=== PATIENT | female | born 1950 | race Caucasian/White ===

== ENCOUNTER 2018-11-26 17:10 | Emergency (ER) | payer MEDICARE, SELFPAY ==
[2018-11-26 17:12] VITALS: BMI 26.4
--- NOTE | 2018-11-26 17:17 | DI.RAD.S_ITS ---
PROCEDURE: XR CHEST 2V INDICATIONS: pain TECHNIQUE: 2 views of the chest were acquired. COMPARISON: None. FINDINGS: Surgical changes and devices: None. Lungs and pleura: Lungs are clear. No pleural effusions or pneumothorax. Mediastinum: Mediastinal contours are normal. Heart size is normal. Bones and chest wall: No suspicious bony abnormalities. Soft tissues appear unremarkable. IMPRESSION: No acute cardiopulmonary disease process. Dictated by: Tuhy Rosado MD, PhD on 11/26/2018 at 17:43 Approved by: Thuy Rosado MD, PhD on 11/26/2018 at 17:44
[2018-11-26 19:48] VITALS: BP 153/73; PULSE 74; RESP 20; O2SAT 100
[2018-11-26 20:00] VITALS: BP 144/83; PULSE 70; O2SAT 100
--- NOTE | 2018-11-26 20:04 | ED.CHESTPAIN ---
HPI - Chest Pain General Chief Complaint: Chest Pain Stated Complaint: Chest Pain Time Seen by Provider: 11/26/18 20:04 Source: patient Mode of arrival: ambulatory Limitations: no limitations History of Present Illness HPI narrative: The patient fell about 3:00 a.m. today. She has a local store, she complained of dizziness, and fell on the sidewalk. She landed on her right forearm, slightly bumped her head, but now complains of right chest pain. the pain is in her right anterior ribs, below the breast. She has no associated dyspnea or hemoptysis. She has right anterior chest pain. she is having no palpitations. She has no cardiac history. She no longer complains of dizziness. She complains primarily of pain. she is not diabetic. He has no history of hypertension. She has no history of syncope, arrhythmia, or CVA. She has not recently been ill. Related Data Home Medications Medication Instructions Recorded Confirmed bupropion HCl 300 mg PO DAILY 11/26/18 11/26/18 hydrocodone-acetaminophen 1 tab PO BID PRN MDD 3000 mg 11/26/18 levothyroxine 50 mcg PO DAILY 11/26/18 11/26/18 Previous Rx's Medication Instructions Recorded tramadol 50 mg PO Q6H PRN #20 tab 11/26/18 Allergies Allergy/AdvReac Type Severity Reaction Status Date / Time No Known Drug Allergies Allergy Verified 11/26/18 17:12 Review of Systems Review of Systems ROS Unobtainable: All systems reviewed & are unremarkable except as noted in HPI and below Constitutional Denies fever(s), Denies lethargy and Denies weakness ENT Ears, Nose, Mouth, and Throat: Denies neck pain Cardiovascular Denies chest pain, Denies irregular heart rhythm, Reports lightheadedness, Denies palpitations and Denies dyspnea Respiratory Denies cough, Denies dyspnea and Denies wheezing Gastrointestinal Gastrointestinal: Denies abdominal pain, Denies nausea and Denies vomiting Musculoskeletal Denies back pain, Denies neck pain and Denies numbness Comments: No extremity pain. Integumentary/Breasts Denies erythema and Denies wounds Neurologic Denies numbness and Denies weakness Psychiatric Reports anxiety Endocrine Denies palpitations Allergic/Immunologic Denies wheezing FOR[facility]LY [facility], [facility] Medical History (Updated 11/26/18 @ 21:55 by Raul Corcoran MD) Depression (Acute) Hypothyroidism (Acute) Surgical History (Updated 11/26/18 @ 20:27 by Raul Corcoran MD) No pertinent past surgical history (Acute) Social History (Updated 11/26/18 @ 20:27 by Raul Corcoran MD) Smoking Status: Never smoker alcohol intake: never Social History (Updated 11/26/18 @ 20:27 by Raul Corcoran MD) Smoking Status: Never smoker alcohol intake: never Exam Initial Vital Signs Initial Vital Signs: Vital Signs Pulse Rate 74 11/26/18 19:48 Respiratory Rate 20 11/26/18 19:48 Blood Pressure 153/73 H 11/26/18 19:48 Pulse Oximetry 100 11/26/18 19:48 Const General: cooperative, well developed and anxious Nutritional Appearance: well nourished Orientation: alert, awake and oriented x3 HENMT Head: normocephalic and atraumatic Nose: external nose normal Face and sinus: face symmetric and dry mucous membranes Mouth: oral mucosae normal and moist mucous membranes Throat: posterior oropharynx normal Eyes General: appearance normal, both eyes and all related structures Pupils: PERRL EOM: EOM intact bilaterally Neck Neck: No midline deformity and No tender Chest Chest: No crepitus and localized rib tenderness with anteroposterior compression (Right anterior chest) Resp Effort & Inspection: normal respiratory effort and able to speak in complete sentences Auscultation: clear to auscultation bilaterally, no rales, no rhonchi and no wheezes Cardio Rate: regular rate Rhythm: regular rhythm Heart Sounds: no click, no gallops, no murmurs and no rubs Pulses: normal peripheral pulses GI Inspection: non-distended Palpation: soft, no hepatosplenomegaly, No guarding, No pulsatile mass and No tender Auscultation: normal bowel sounds Back/Spine/Pelvis Back: normal to inspection and No back tenderness Skin General: no rashes or lesions noted Neuro General: alert, oriented x3, gait normal and no focal motor deficits Speech: speech normal Extrem Other: Atraumatic Psych Appearance: well kempt Mental Status: mental status grossly normal Speech and Movement: speech and movement normal Attitude: cooperative Thought Content: normal and suicidality Judgment: judgment good Course Course Narrative: The patient has what appears to be a chest wall contusion. She has been treated with Toradol IM, and will be discharged on Tylenol and tramadol. Orders Ordered: ED Orders 11/26/18 17:14 EKG-12 Lead Routine 11/26/18 17:17 XR chest 2V Stat 11/26/18 20:18 XR ribs RT 2V Stat Discontinued Medications Ketorolac Tromethamine (Toradol) 30 mg IM NOW ONE Stop: 11/26/18 20:16 Last Admin: 11/26/18 20:25 Dose: 30 mg Tramadol HCl (Ultram 50mg Prepack) 1 bottle MISC SEEINSTR ONE Stop: 11/26/18 21:51 Vital Signs - 8 hr 11/26/18 19:48 11/26/18 20:00 11/26/18 20:32 Temperature 97.9 F Pulse Rate 74 70 Respiratory Rate 20 Blood Pressure [Left Arm] 153/73 H 144/83 H Pulse Oximetry 100 100 11/26/18 21:03 11/26/18 21:52 Temperature 97.9 F Pulse Rate 74 78 Respiratory Rate 16 Blood Pressure [Left Arm] 152/70 H 146/69 H Pulse Oximetry 100 98 MDM - Chest Pain Imaging Data Right rib XR:: Radiologist's impression: [address] [address] XRay Report Signed Patient: Yesika Peralta [facility]#: [id number] : 9Acct:[id number] Age/Sex: 67 / FDate of Service: 11/26/18 Loc: ED Accession Number: [id number] Procedure: XR ribs RT 2V Ordering Provider: Raul Corcoran M.D. PROCEDURE: XR RIBS RT 2V INDICATIONS: Fall. Right rib pain. TECHNIQUE: 2 views of the right ribs were acquired. COMPARISON: None. FINDINGS: Surgical changes and devices: None. Bones and chest wall: No fractures or dislocations. No suspicious bony lesions. Overlying soft tissues appear unremarkable. Lungs and pleura: The visualized lung appears clear. No pleural effusions or pneumothorax are visible. IMPRESSION: No displaced rib fracture. Dictated by: Thuy Rosado MD, PhD on 11/26/2018 at 20:43 Approved by: Thuy Rosado MD, PhD on 11/26/2018 at 20:44 Chest x-ray: Radiologist's impression: [address] [place] [address] XRay Report Signed Patient: Yesika Peralta [facility]#: [id number] : 9Acct:[id number] Age/Sex: 67 / FDate of Service: 11/26/18 Loc: ED Accession Number: [id number] Procedure: XR chest 2V Ordering Provider: Trudy Rico D.O. PROCEDURE: XR CHEST 2V INDICATIONS: pain TECHNIQUE: 2 views of the chest were acquired. COMPARISON: None. FINDINGS: Surgical changes and devices: None. Lungs and pleura: Lungs are clear. No pleural effusions or pneumothorax. Mediastinum: Mediastinal contours are normal. Heart size is normal. Bones and chest wall: No suspicious bony abnormalities. Soft tissues appear unremarkable. IMPRESSION: No acute cardiopulmonary disease process. Dictated by: Thuy Rosado MD, PhD on 11/26/2018 at 17:43 Approved by: Thuy Rosado MD, PhD on 11/26/2018 at 17:44 ECG Data Attestation: I personally reviewed and interpreted this ECG as follows: (Normal sinus rhythm rate 76 beats per minute. incomplete RBBB. Normal intervals. No ectopy. No acute ST T wave changes.) Discharge Plan Departure Patient Disposition: Home Clinical Impression: Contusion of rib on right side Qualifiers: Encounter type: initial encounter Qualified Code(s): S20.211A - Contusion of right front wall of thorax, initial encounter Instructions: DI for Rib Contusion Activity Restrictions/Additional Instructions: Tylenol 2 tablets every 4 hours as needed for pain. Tramadol every 6 hours as needed for added pain control. If no better within a week, recheck with her doctor. If obviously worse return to the ER. Prescriptions: New tramadol 50 mg tablet 50 mg PO Q6H PRN (Reason: pain) Qty: 20 RF: 0 No Action hydrocodone-acetaminophen 5-325 mg tablet 1 tab PO BID MDD 3000 mg PRN (Reason: pain) RF: 0 levothyroxine 50 mcg tablet 50 mcg PO DAILY RF: 0 bupropion HCl 300 mg tablet extended release 24 hr 300 mg PO DAILY RF: 0
--- NOTE | 2018-11-26 20:18 | DI.RAD.S_ITS ---
PROCEDURE: XR RIBS RT 2V INDICATIONS: Fall. Right rib pain. TECHNIQUE: 2 views of the right ribs were acquired. COMPARISON: None. FINDINGS: Surgical changes and devices: None. Bones and chest wall: No fractures or dislocations. No suspicious bony lesions. Overlying soft tissues appear unremarkable. Lungs and pleura: The visualized lung appears clear. No pleural effusions or pneumothorax are visible. IMPRESSION: No displaced rib fracture. Dictated by: Thuy Rosado MD, PhD on 11/26/2018 at 20:43 Approved by: Thuy Rosado MD, PhD on 11/26/2018 at 20:44
[2018-11-26] MEDS: KETOROLAC 60 MG/2 ML VIAL 30 MG IM (20:25)
[2018-11-26 20:32] VITALS: TEMP 36.6
[2018-11-26 21:03] VITALS: BP 152/70; PULSE 74; O2SAT 100
[2018-11-26 21:52] VITALS: BP 146/69; PULSE 78; RESP 16; TEMP 36.6; O2SAT 98
[2018-11-26] MEDS: TRAMADOL 50 MG PREPACK 1 BOTTLE MISC (22:03)
== END 2018-11-26 22:05 | disposition home or self-care (01) ==
PROVIDERS: Emergency Provider Emergency Medicine
DX: S20.211A Contusion of right front wall of thorax, initial encounter (principal); R42 Dizziness and giddiness; R07.81 Pleurodynia; W19.XXXA Unspecified fall, initial encounter
CPT/HCPCS: 71046; 71100; 93005; 93010; 96372; 99283; 99284; J1885

== ENCOUNTER → 2023-12-05 14:28 | Outpatient (CLI) | payer MEDICARE, SELFPAY ==
--- NOTE | 2023-12-05 14:31 | DI.RAD.S_ITS ---
PROCEDURE: XR SHOULDER RT MIN 2V INDICATIONS: PAIN TECHNIQUE: 3 views of the shoulder were acquired. COMPARISON: None. FINDINGS: Bones: Mild degenerative change of the acromioclavicular joint. Severe degenerative change of the glenohumeral joint with large humeral head osteophytosis. Cortical irregularity of the greater tuberosity, concern for rotator cuff pathology. No acute fracture or dislocation. Soft tissues: No suspicious soft tissue calcifications. IMPRESSION: Chronic changes. Dictated by: Fatuma Mathis M.D. on 12/05/2023 at 17:13 Approved by: Fatuma Mathis M.D. on 12/05/2023 at 17:16
== END ==
LOC: RAD 14:30
PROVIDERS: Referring Provider Specialist; Visit Provider Specialist
DX: M25.512 Pain in left shoulder (principal)
CPT/HCPCS: 73030

== ENCOUNTER 2024-04-13 16:30 | Emergency (ER) | payer MEDICARE, SELFPAY ==
[2024-04-13] VITALS (15 sets, daily range): BP systolic 157–186; BP diastolic 67–94; PULSE 68–83; RESP 14–30; TEMP 36.9; O2SAT 92–98; BMI 25.0
--- NOTE | 2024-04-13 16:45 | DI.CT.S_ITS ---
PROCEDURE: CT ANGIO HEAD AND NECK INDICATIONS: syncopal episode,hit face on concrete TECHNIQUE: After the administration of intravenous contrast, 1 mm thick sections acquired from the aortic arch through the [place]. 3-dimensional prxlaau-otbcvvgjz-pxewhidgce (MIP) and/or volume rendering reformats were acquired of the central intracranial vasculature and neck separately. For radiation dose reduction, the following was used: automated exposure control, adjustment of mA and/or kV according to patient size. COMPARISON: None. FINDINGS: Image quality: Diagnostic. BRAIN: CSF spaces: Ventricles are normal in size and shape. Basal cisterns are patent. No extra-axial fluid collections. Brain: No significant abnormality of the brain can be seen. Skull and face: Calvarium and facial bones appear intact, without suspicious lesions. Orbits appear normal. Sinuses: Sinuses and mastoids are clear. HEAD CT ANGIOGRAPHY: Anterior circulation: Intracranial internal carotid arteries are normal in size and flow. The flow within the paired anterior cerebral arteries is normal and symmetric. The flow within the middle cerebral arteries is normal and symmetric. The anterior communicating artery is seen. No aneurysms are seen. Posterior circulation: Visualized portions of the vertebral arteries demonstrate normal caliber, and join to form a normal appearing basilar artery. Flow within the posterior cerebral arteries is normal and symmetric. No aneurysms are seen. NECK CT ANGIOGRAPHY: Carotid system: The great vessels demonstrate a conventional anatomy as they arise from the aortic arch. The origins of the common carotid arteries appear patent. The common carotid arteries demonstrate normal caliber and courses. The bifurcation regions are both widely patent. The internal carotid arteries demonstrate normal calibers and courses. Posterior circulation: The origins of the vertebral arteries both appear widely patent. The more superior extracranial portions of both vertebral arteries also demonstrate normal courses and calibers. They join to form a normal appearing basilar artery. Soft tissues: Visualized neck soft tissues demonstrate no suspicious abnormalities. Bones: No suspicious bony lesions. There is straightening of the normal cervical lordosis. Multilevel degenerative changes. IMPRESSION: No significant intracranial arterial abnormality is seen. No significant abnormality is seen within the arteries of the neck. Any quantitative measurements of stenosis were performed using NASCET criteria. Approved by: Bailey Jameson M.D.,Ph.D. on 04/13/2024 at 18:09
--- NOTE | 2024-04-13 16:45 | DI.CT.S_ITS ---
PROCEDURE: CT FACIAL BONES WO CON INDICATIONS: syncopal episode,hit face on concrete TECHNIQUE: Noncontrast 2.5 mm thick axial images acquired from the mandible through the frontal sinuses, with coronal and sagittal reformatting. For radiation dose reduction, the following was used: automated exposure control, adjustment of mA and/or kV according to patient size. COMPARISON: None. FINDINGS: Image quality: Diagnostic Bones and teeth: Orbital frazier are intact. Sinus frazier show no fracture or deformity. Nasal bones and septum are intact. Visualized portions of the mandible demonstrate no fractures or subluxation. Zygomatic arches are intact. Pterygoid plates are intact. Visualized portions of the skull base and auditory canals are intact. Sinuses: Paranasal sinuses are aerated, without fluid levels, mucosal thickening, or mucoceles. Mastoid air cells are aerated. Soft tissues: No edema, masses, or fluid collections. No enlarged lymph nodes. No soft tissue lacerations or debris. Vascular: Visualized vascular structures appear normal in the absence of contrast. Bony vascular foramina and canals are intact. IMPRESSION: No acute craniofacial abnormality. Approved by: Bailey Jameson M.D.,Ph.D. on 04/13/2024 at 19:07
--- NOTE | 2024-04-13 16:45 | DI.CT.S_ITS ---
PROCEDURE: CT CERVICAL SPINE WO CON INDICATIONS: syncopal episode,hit face on concrete TECHNIQUE: Noncontrast 3 mm thick sections acquired from the skull base to the T4 level. Sagittal and coronal reformats were then constructed. For radiation dose reduction, the following was used: automated exposure control, adjustment of mA and/or kV according to patient size. COMPARISON: None. FINDINGS: Image quality: Diagnostic Bones: No fractures or dislocations. Visualized superior ribs are intact. There is straightening of the normal cervical lordosis. Severe multilevel degenerative changes. Soft tissues: Prevertebral soft tissues are normal in thickness. No paravertebral hematomas. No apical pneumothoraces. IMPRESSION: No acute displaced fracture or traumatic subluxation. Approved by: Bailey Jameson M.D.,Ph.D. on 04/13/2024 at 19:11
--- NOTE | 2024-04-13 16:45 | DI.CT.S_ITS ---
PROCEDURE: CT HEAD/BRAIN WO CON INDICATIONS: syncopal episode,hit face on concrete TECHNIQUE: Noncontrast 4.5 mm thick angled axial sections acquired from the foramen magnum to the vertex, with coronal and sagittal reformats. For radiation dose reduction, the following was used: automated exposure control, adjustment of mA and/or kV according to patient size. COMPARISON: None. FINDINGS: Image quality: Diagnostic. CSF spaces: Basal cisterns are patent. No extra-axial fluid collections. The ventricles are symmetric in size and shape. Brain: No intracranial bleeds or masses. There is cerebral volume loss for age, with resultant ventricular and sulcal prominence. There are periventricular and deep white matter chronic small vessel ischemic changes. There is intracranial internal carotid artery atherosclerosis. Skull and face: Calvarium and visualized facial bones appear intact, without suspicious lesions. Sinuses: Visualized sinuses and mastoids are clear. IMPRESSION: No acute intracranial pathology. Approved by: Bailey Jameson M.D.,Ph.D. on 04/13/2024 at 18:04
--- NOTE | 2024-04-13 16:46 | DI.RAD.S_ITS ---
PROCEDURE: XR CHEST 1V INDICATIONS: chest pain TECHNIQUE: One view of the chest was acquired. COMPARISON: [facility], CR, XR CHEST 2V, 11/26/2018, 17:33. FINDINGS: Surgical changes and devices: None. Lungs and pleura: Lungs are clear. No pleural effusions or pneumothorax. Mediastinum: Mediastinal contours appear normal. Heart size is normal. Bones and chest wall: No suspicious bony lesions. Overlying soft tissues appear unremarkable. IMPRESSION: No acute cardiopulmonary abnormality is seen. Approved by: Bailey Jameson M.D.,Ph.D. on 04/13/2024 at 17:33
--- NOTE | 2024-04-13 16:54 | EKG_ITS ---
[address] [address] Test Date: 2024-04-13 Pat Name: Yesika Peralta Department: Room: Gender: Female Executive Legal Secretary: CESAR : 1950 Requested By: Order Number: [id number] Reading MD: Edu Bazan MD Measurements Intervals Goodman Rate: 70 P: 50 MS: 178 QRS: -20 QRSD: 86 T: 24 QT: 402 QTc: 434 Interpretive Statements Normal sinus rhythm with sinus arrhythmia Minimal voltage criteria for LVH, may be normal variant ( R in aVL ) Electronically Signed On 04-17-2024 8:34:06 PDT by Edu Bazan MD
[2024-04-13 17:04] LABS: Add Manual Diff / Slide Review NO; Basophils Absolute Auto 100 /uL (0-100); Eosinophils Absolute Auto 200 /uL (0-450); Eosinophils Percent Auto 1.6 % (2-4); Hematocrit 37.2 % (36-46); Hemoglobin 12.7 g/dL (12.0-16.0); Lymphocytes Absolute Auto 2500 /uL (1100-4500); Lymphocytes Percent Auto 24.4 % (25-40); Mean Corpuscular Hemoglobin 29.7 PG (26-34); Mean Corpuscular Volume 87.1 fL (80-100); Monocytes Absolute Auto 1100 /uL (0-900); Monocytes Percent Auto 10.9 % (3-14); Neutrophils Absolute Auto 6300 /uL (1500-7000); Neutrophils Percent Auto 62.1 % (50-75); Platelet Count 389 X10^3/uL (150-400); Red Blood Cell Count 4.27 X10^6/uL (4.0-5.2); Red Cell Distribution Width 14.4 % (11.6-14.8); White Blood Cell Count 10.1 X10^3/uL (4.5-11.0)
[2024-04-13 17:11] LABS: Prothrombin Time 11.1 SECONDS (9.4-12.5)
[2024-04-13 17:14] LABS: PTT Partial Thromboplastin Tim 39 SECONDS (25.1-36.5)
[2024-04-13 17:16] LABS: Alanine Aminotransferase 15 IU/L (<35); Albumin 3.9 g/dL (3.5-5.0); Albumin Globulin Ratio 1.4 (1.0-2.8); Alkaline Phosphatase 75 U/L (38-126); Aspartate Aminotransferase 24 IU/L (14-36); BUN Creatinine Ratio 17.7 (6-22); Bilirubin Total 0.4 mg/dL (0.2-1.3); Blood Urea Nitrogen 14 mg/dL (7-17); Calcium 9.2 mg/dL (8.4-10.2); Carbon Dioxide 23 mmol/L (22-32); Chloride 104 mmol/L (98-107); Creatine Kinase 38 U/L (30-135); Estimated Glomerular Filt Rate > 60 mL/min (>60); Globulin 2.8 g/dL (1.7-4.1); Glucose 90 mg/dL (80-110); HEMOLYSIS < 15 (0-50); Lipase 48 U/L (23-300); Magnesium 2.3 mg/dL (1.6-2.3); Potassium 3.9 mmol/L (3.4-5.1); Sodium 134 mmol/L (137-145); Total Protein 6.7 g/dL (6.3-8.2)
--- NOTE | 2024-04-13 17:23 | ED.SYNCOPE ---
HPI - Syncope <Graham Bales DO - Last Filed: 04/14/24 10:50> General Chief Complaint: Syncope Stated Complaint: syncopal episode, fell on sidewalk Time Seen by Provider: 04/13/24 16:53 Source: patient Mode of arrival: Ambulatory Limitations: no limitations History of Present Illness HPI narrative: Patient is a 73-year-old female past medical history of hypothyroidism comes into the ED via EMS for evaluation of witnessed syncopal event. Patient states that she was out walking downtown when she had a syncopal event. States that she was not having any presyncopal or syncopal symptoms no chest pain shortness of breath prior or after the symptoms. No blood thinners, no seizure-like activity. Currently she is stating she has not having any symptoms such as headache visual disturbances chest pain shortness breath fever chills nausea vomiting abdominal pain or any other GI/ symptoms. Related Data Home Medications Medication Instructions Recorded Confirmed bupropion HCl 300 mg 24 hr tablet, 300 mg PO DAILY 11/26/18 11/26/18 extended release hydrocodone 5 mg-acetaminophen 325 1 tab PO BID PRN pain 11/26/18 mg tablet levothyroxine 50 mcg tablet 50 mcg PO DAILY 11/26/18 11/26/18 Previous Rx's Medication Instructions Recorded tramadol 50 mg tablet 50 mg PO Q6H PRN pain #20 tabs 11/26/18 Allergies Allergy/AdvReac Type Severity Reaction Status Date / Time No Known Drug Allergies Allergy Verified 04/13/24 16:47 Patient History <Graham Bales DO - Last Filed: 04/14/24 10:50> Medical History (Updated 04/13/24 @ 21:14 by Alex Gregorio DO) Depression Hypothyroidism Surgical History (Updated 11/26/18 @ 20:27 by Raul Corcoran MD) No pertinent past surgical history Social History (Updated 11/26/18 @ 20:27 by Raul Corcoran MD) Smoking Status: Never smoker alcohol intake: never Smoking Status: Never smoker alcohol intake frequency: holidays/special occasions only Substance Use Type: does not use Exam <Graham Bales DO - Last Filed: 04/14/24 10:50> Initial Vital Signs Initial Vital Signs: Vital Signs Temperature 98.5 F 04/13/24 16:31 Pulse Rate 80 04/13/24 16:31 Respiratory Rate 14 04/13/24 16:31 Blood Pressure 186/94 H 04/13/24 16:31 Pulse Oximetry 94 04/13/24 16:31 Oxygen Delivery Method Room Air 04/13/24 16:31 <Alex Gregorio, DO - Last Filed: 04/13/24 21:50> Initial Vital Signs Initial Vital Signs: Vital Signs Temperature 98.5 F 04/13/24 16:31 Pulse Rate 80 04/13/24 16:31 Respiratory Rate 14 04/13/24 16:31 Blood Pressure 186/94 H 04/13/24 16:31 Pulse Oximetry 94 04/13/24 16:31 Oxygen Delivery Method Room Air 04/13/24 16:31 Course <Graham Bales, DO - Last Filed: 04/14/24 10:50> Orders Ordered: Discontinued Medications Diphtheria/Tetanus/Acell Pertussis (Tet,Diph,Pertuss(Acell),Vac/Pf 0.5 Ml Syringe) 0.5 ml IM .ONCE ONE Stop: 04/13/24 21:31 Last Admin: 04/13/24 21:34 Dose: 0.5 ml Documented By: JIAN Vital Signs Vital signs: Vital Signs - 8 hr 04/13/24 16:31 04/13/24 16:38 04/13/24 16:39 Temperature 98.5 F Pulse Rate 80 83 80 Respiratory Rate 14 Blood Pressure 186/94 H Pulse Oximetry 94 97 96 Oxygen Delivery Method Room Air Room Air 04/13/24 16:39 04/13/24 17:00 04/13/24 17:00 Temperature Pulse Rate 70 Respiratory Rate 17 Blood Pressure 186/94 H 159/73 H Pulse Oximetry 97 Oxygen Delivery Method 04/13/24 17:34 04/13/24 17:35 04/13/24 17:35 Temperature Pulse Rate 73 72 Respiratory Rate 16 17 Blood Pressure 165/72 H Pulse Oximetry 92 98 Oxygen Delivery Method Room Air 04/13/24 18:00 04/13/24 18:00 04/13/24 18:30 Temperature Pulse Rate 71 68 Respiratory Rate 21 24 Blood Pressure 158/67 H Pulse Oximetry 97 98 Oxygen Delivery Method 04/13/24 19:00 04/13/24 19:01 04/13/24 19:01 Temperature Pulse Rate 77 77 Respiratory Rate Blood Pressure 173/74 H Pulse Oximetry 98 98 Oxygen Delivery Method 04/13/24 19:30 04/13/24 19:30 04/13/24 20:04 Temperature Pulse Rate 72 82 Respiratory Rate 24 30 H Blood Pressure 166/74 H Pulse Oximetry 95 97 Oxygen Delivery Method Room Air 04/13/24 20:30 04/13/24 21:00 04/13/24 21:22 Temperature Pulse Rate 70 70 76 Respiratory Rate 18 18 20 Blood Pressure Pulse Oximetry 96 96 96 Oxygen Delivery Method 04/13/24 21:22 Temperature Pulse Rate Respiratory Rate Blood Pressure 157/69 H Pulse Oximetry Oxygen Delivery Method <Alex Gregorio, DO - Last Filed: 04/13/24 21:50> Orders Ordered: Discontinued Medications Diphtheria/Tetanus/Acell Pertussis (Tet,Diph,Pertuss(Acell),Vac/Pf 0.5 Ml Syringe) 0.5 ml IM .ONCE ONE Stop: 04/13/24 21:31 Last Admin: 04/13/24 21:34 Dose: 0.5 ml Documented By: BS Vital Signs Vital signs: Vital Signs - 8 hr 04/13/24 16:31 04/13/24 16:38 04/13/24 16:39 Temperature 98.5 F Pulse Rate 80 83 80 Respiratory Rate 14 Blood Pressure 186/94 H Pulse Oximetry 94 97 96 Oxygen Delivery Method Room Air Room Air 04/13/24 16:39 04/13/24 17:00 04/13/24 17:00 Temperature Pulse Rate 70 Respiratory Rate 17 Blood Pressure 186/94 H 159/73 H Pulse Oximetry 97 Oxygen Delivery Method 04/13/24 17:34 04/13/24 17:35 04/13/24 17:35 Temperature Pulse Rate 73 72 Respiratory Rate 16 17 Blood Pressure 165/72 H Pulse Oximetry 92 98 Oxygen Delivery Method Room Air 04/13/24 18:00 04/13/24 18:00 04/13/24 18:30 Temperature Pulse Rate 71 68 Respiratory Rate 21 24 Blood Pressure 158/67 H Pulse Oximetry 97 98 Oxygen Delivery Method 04/13/24 19:00 04/13/24 19:01 04/13/24 19:01 Temperature Pulse Rate 77 77 Respiratory Rate Blood Pressure 173/74 H Pulse Oximetry 98 98 Oxygen Delivery Method 04/13/24 19:30 04/13/24 19:30 04/13/24 20:04 Temperature Pulse Rate 72 82 Respiratory Rate 24 30 H Blood Pressure 166/74 H Pulse Oximetry 95 97 Oxygen Delivery Method Room Air 04/13/24 20:30 04/13/24 21:00 04/13/24 21:22 Temperature Pulse Rate 70 70 76 Respiratory Rate 18 18 20 Blood Pressure Pulse Oximetry 96 96 96 Oxygen Delivery Method 04/13/24 21:22 Temperature Pulse Rate Respiratory Rate Blood Pressure 157/69 H Pulse Oximetry Oxygen Delivery Method MDM - Syncope <Graham Bales, - Last Filed: 04/14/24 10:50> Differential Diagnosis Differential diagnosis: Likely syncope due to orthostatic hypotension, vasovagal syncope, complete atrioventricular block, pulmonary embolism and other (Electrolyte abnormality) Condition is:: Improved Medical Records Attestation: I reviewed the patient's medical records. Lab Data Attestation: I reviewed the patient's lab results. 04/13/24 16:51 04/13/24 16:51 Labs: Lab Results 04/13/24 Range/Units 16:51 WBC 10.1 (4.5-11.0) X10^3/uL RBC 4.27 (4.0-5.2) X10^6/uL Hgb 12.7 (12.0-16.0) g/dL Hct 37.2 (36-46) % MCV 87.1 (80-100) fL MCH 29.7 (26-34) PG MCHC 34.0 (30-36) % RDW 14.4 (11.6-14.8) % Plt Count 389 (150-400) X10^3/uL Neut % (Auto) 62.1 (50-75) % Lymph % (Auto) 24.4 L (25-40) % [place] % (Auto) 10.9 (3-14) % Eos % (Auto) 1.6 L (2-4) % Baso % (Auto) 1.0 (0-2) % Neut # (Auto) 6300 (0791-8571) /uL Lymph # (Auto) 2500 (1835-7800) /uL [place] # (Auto) 1100 H (0-900) /uL Eos # (Auto) 200 (0-450) /uL Baso # (Auto) 100 (0-100) /uL PT 11.1 (9.4-12.5) SECONDS INR 1.0 (0.9-1.3) APTT 39 H (25.1-36.5) SECONDS D-Dimer 764 H (<500) ng/ml Sodium 134 L (137-145) mmol/L Potassium 3.9 (3.4-5.1) mmol/L Chloride 104 (98-107) mmol/L Carbon Dioxide 23 (22-32) mmol/L BUN 14 (7-17) mg/dL Creatinine 0.79 (0.52-1.04) mg/dL Estimated GFR > 60 (>60) mL/min BUN/Creatinine Ratio 17.7 (6-22) Glucose 90 (80-110) mg/dL Calcium 9.2 (8.4-10.2) mg/dL Magnesium 2.3 (1.6-2.3) mg/dL Total Bilirubin 0.4 (0.2-1.3) mg/dL AST 24 (14-36) IU/L ALT 15 (<35) IU/L Alkaline Phosphatase 75 (38-126) U/L Total Creatine Kinase 38 (30-135) U/L Troponin I < 0.012 (0.01-0.034) ng/mL NT-Pro-B Natriuret Pep 216 (<450) pg/mL Total Protein 6.7 (6.3-8.2) g/dL Albumin 3.9 (3.5-5.0) g/dL Globulin 2.8 (1.7-4.1) g/dL Albumin/Globulin Ratio 1.4 (1.0-2.8) Lipase 48 (23-300) U/L ECG Data Attestation: I personally reviewed and interpreted this ECG as follows: Interpretation: EKG interpreted by ED physician sinuses 70 beats per minute QTC 434, left axis deviation nonspecific ST changes no STEMI. MDM Narrative Medical decision making narrative: Patient is a 73-year-old female past medical history of hypothyroidism brought in to the ED via EMS for witnessed syncopal event and head strike. According to the patient she was walking [place] in [place] and [place], states that she did not have any syncopal or presyncopal symptoms no lightheadedness chest pain shortness of breath prior to the episode, states that she just woke up on the floor, no witnessed seizure-like activity lasted no more than a minute. At time of initial evaluation patient is A&O x3 no focal deficits noted stating that she just has some pain to her face on exam there is ecchymosis without any palpable gross deformities or step-offs, patient did have CT scan of head neck face CTA head and neck that did not show any intracranial hemorrhage or stenoses. Did not have any signs of fracture. Lab work not consistent with any electrolyte derangements EKG nonischemic trop negative. Patient with low [place] syncope score, was about to discharge patient when further information was obtained, patient states that earlier on she was having some mild shortness of breath, states that she also forgot to mention that she has a distant history of pulmonary embolism that did require 6 months of anticoagulation, states that she was told that the cause might have been due to Celebrex use therefore she has not been taking it anymore. Has not had any issues since. Therefore D-dimer added and patient will be signed out to next providing physician. Dr gregorio: Received turned over. Review patient's history and physical and workup. Patient was scheduled to be discharged however after discussion with initial ED provider turns out that the patient has a history of pulmonary embolisms and was somewhat short of breath a few days prior to the syncopal episode. She did have a positive D dimer which was age adjusted. Subsequent CT scan of her chest shows no signs of pulmonary embolism. Plan will be for discharge home. Continue to take all of her medications. Will have her contact her primary doctor for follow-up. She expressed understanding and agreement with plan. <Alex Gregorio, DO - Last Filed: 04/13/24 21:50> Lab Data Labs: Lab Results 04/13/24 Range/Units 16:51 WBC 10.1 (4.5-11.0) X10^3/uL RBC 4.27 (4.0-5.2) X10^6/uL Hgb 12.7 (12.0-16.0) g/dL Hct 37.2 (36-46) % MCV 87.1 (80-100) fL MCH 29.7 (26-34) PG MCHC 34.0 (30-36) % RDW 14.4 (11.6-14.8) % Plt Count 389 (150-400) X10^3/uL Neut % (Auto) 62.1 (50-75) % Lymph % (Auto) 24.4 L (25-40) % [place] % (Auto) 10.9 (3-14) % Eos % (Auto) 1.6 L (2-4) % Baso % (Auto) 1.0 (0-2) % Neut # (Auto) 6300 (2414-6515) /uL Lymph # (Auto) 2500 (2188-0735) /uL [place] # (Auto) 1100 H (0-900) /uL Eos # (Auto) 200 (0-450) /uL Baso # (Auto) 100 (0-100) /uL PT 11.1 (9.4-12.5) SECONDS INR 1.0 (0.9-1.3) APTT 39 H (25.1-36.5) SECONDS D-Dimer 764 H (<500) ng/ml Sodium 134 L (137-145) mmol/L Potassium 3.9 (3.4-5.1) mmol/L Chloride 104 (98-107) mmol/L Carbon Dioxide 23 (22-32) mmol/L BUN 14 (7-17) mg/dL Creatinine 0.79 (0.52-1.04) mg/dL Estimated GFR > 60 (>60) mL/min BUN/Creatinine Ratio 17.7 (6-22) Glucose 90 (80-110) mg/dL Calcium 9.2 (8.4-10.2) mg/dL Magnesium 2.3 (1.6-2.3) mg/dL Total Bilirubin 0.4 (0.2-1.3) mg/dL AST 24 (14-36) IU/L ALT 15 (<35) IU/L Alkaline Phosphatase 75 (38-126) U/L Total Creatine Kinase 38 (30-135) U/L Troponin I < 0.012 (0.01-0.034) ng/mL NT-Pro-B Natriuret Pep 216 (<450) pg/mL Total Protein 6.7 (6.3-8.2) g/dL Albumin 3.9 (3.5-5.0) g/dL Globulin 2.8 (1.7-4.1) g/dL Albumin/Globulin Ratio 1.4 (1.0-2.8) Lipase 48 (23-300) U/L Imaging Data CT scan - chest: Radiologist's Impression: PROCEDURE: CT ANGIO CHEST PE PROTOCOL INDICATIONS: Chest pain, shortness of breath, tachycardia TECHNIQUE: After the administration of intravenous contrast, 2 mm thick sections acquired from the pulmonary apices to the posterior costophrenic angles. MIP reformats of the arterial vasculature were utilized. For radiation dose reduction, the following was used: automated exposure control, adjustment of mA and/or kV according to patient size. COMPARISON: None. FINDINGS: Cardiovascular: Heart size is normal. No evidence of pulmonary embolism, aortic aneurysm or dissection. Lungs and Pleura: Diffuse chronic interstitial changes noted particular at the lung bases without focal infiltrate Mediastinum: The thyroid is unremarkable. No hiatal hernia. Lymph nodes: No mediastinal, hilar or axillary adenopathy. Bones and Chest Wall: Irregular skin thickening noted in both periareolar breasts as well as the right lateral breast Upper Abdomen: No significant abnormality present. IMPRESSION: No acute findings. No evidence of pulmonary embolism, aortic aneurysm or dissection. Bilateral irregular skin thickening noted involving both periareolar breasts. Consider mammographic correlation MDM Narrative Medical decision making narrative: Dr gregorio: Received turned over. Review patient's history and physical and workup. Patient was scheduled to be discharged however after discussion with initial ED provider turns out that the patient has a history of pulmonary embolisms and was somewhat short of breath a few days prior to the syncopal episode. She did have a positive D dimer which was age adjusted. Subsequent CT scan of her chest shows no signs of pulmonary embolism. Plan will be for discharge home. Continue to take all of her medications. Will have her contact her primary doctor for follow-up. She expressed understanding and agreement with plan. Discharge Plan Departure Patient Disposition: Home Clinical Impression: Syncope, Contusion of face Instructions: DI for Syncope in Adults (Fainting) Activity Restrictions/Additional Instructions: Your workup here in the emergency department is very reassuring. There does not appear to be any broken bones. I recommend that you continue to take all of your medications as directed. Contact your primary doctor for follow-up. Return to the emergency department for new or worsening symptoms. Prescriptions: No Action hydrocodone-acetaminophen 5-325 mg tablet 1 tab PO BID MDD 3000 mg PRN (Reason: pain) Patient Comments: TK 1 T PO BID PRF PAIN FILL DATE 10/18/18. NTE 3000 MG OF ACETAMINOPHENPER DAY levothyroxine 50 mcg tablet 50 mcg PO DAILY Patient Comments: TK 1 T PO D bupropion HCl 300 mg tablet extended release 24 hr 300 mg PO DAILY Patient Comments: TK 1 T PO D tramadol 50 mg tablet 50 mg PO Q6H PRN (Reason: pain) Qty: 20 0RF Referrals: Carla Breen MD [Primary Care Provider] - Stand Alone Forms: Patient Portal/API
[2024-04-13 17:27] LABS: NT-proBNP (BNP-Adult 18+) 216 pg/mL (<450); Troponin I < 0.012 ng/mL (0.01-0.034)
--- NOTE | 2024-04-13 18:59 | ED_ITS ---
HPI - General Adult General Chief complaint: Syncope Stated complaint: syncopal episode, fell on sidewalk Time Seen by Provider: 04/13/24 16:53 Source: patient Mode of arrival: Ambulatory Related Data Home Medications Medication Instructions Recorded Confirmed bupropion HCl 300 mg 24 hr tablet, 300 mg PO DAILY 11/26/18 11/26/18 extended release hydrocodone 5 mg-acetaminophen 325 1 tab PO BID PRN pain 11/26/18 mg tablet levothyroxine 50 mcg tablet 50 mcg PO DAILY 11/26/18 11/26/18 Previous Rx's Medication Instructions Recorded tramadol 50 mg tablet 50 mg PO Q6H PRN pain #20 tabs 11/26/18 Allergies Allergy/AdvReac Type Severity Reaction Status Date / Time No Known Drug Allergies Allergy Verified 04/13/24 16:47 Patient History Medical History (Updated 12/11/18 @ 00:00 by ) Depression Hypothyroidism Surgical History (Updated 11/26/18 @ 20:27 by Raul Corcoran MD) No pertinent past surgical history Social History (Updated 11/26/18 @ 20:27 by Raul Corcoran MD) Smoking Status: Never smoker alcohol intake: never Smoking Status: Never smoker alcohol intake frequency: holidays/special occasions only Substance Use Type: does not use Exam Initial Vital Signs Initial Vital Signs: Vital Signs Temperature 98.5 F 04/13/24 16:31 Pulse Rate 80 04/13/24 16:31 Respiratory Rate 14 04/13/24 16:31 Blood Pressure 186/94 H 04/13/24 16:31 Pulse Oximetry 94 04/13/24 16:31 Oxygen Delivery Method Room Air 04/13/24 16:31 Course Orders Ordered: ED Orders 04/13/24 16:45 CT angio head and neck Stat CT cervical spine wo con Stat CT facial bones wo con Stat CT head/brain wo con Stat 04/13/24 16:46 XR chest 1V Stat EKG-12 Lead Stat 04/13/24 16:51 Complete Blood Count AUTO DIFF Stat Comprehensive Metabolic Panel Stat Lipase Stat Magnesium Stat NT-proBNP (BNP-Adult 18+) Stat PTT Partial Thromboplastin Demetris Stat Prothrombin Time INR Stat Troponin & CK Cardiac Panel Stat Vital Signs Vital signs: Vital Signs - 8 hr 04/13/24 16:31 04/13/24 16:38 04/13/24 16:39 Temperature 98.5 F Pulse Rate 80 83 80 Respiratory Rate 14 Blood Pressure 186/94 H Pulse Oximetry 94 97 96 Oxygen Delivery Method Room Air Room Air 04/13/24 16:39 04/13/24 17:00 04/13/24 17:00 Temperature Pulse Rate 70 Respiratory Rate 17 Blood Pressure 186/94 H 159/73 H Pulse Oximetry 97 Oxygen Delivery Method 04/13/24 17:34 04/13/24 17:35 04/13/24 17:35 Temperature Pulse Rate 73 72 Respiratory Rate 16 17 Blood Pressure 165/72 H Pulse Oximetry 92 98 Oxygen Delivery Method Room Air 04/13/24 18:00 04/13/24 18:00 04/13/24 18:30 Temperature Pulse Rate 71 68 Respiratory Rate 21 24 Blood Pressure 158/67 H Pulse Oximetry 97 98 Oxygen Delivery Method Medical Decision Making Lab Data 04/13/24 16:51 04/13/24 16:51 Labs: Lab Results 04/13/24 Range/Units 16:51 WBC 10.1 (4.5-11.0) X10^3/uL RBC 4.27 (4.0-5.2) X10^6/uL Hgb 12.7 (12.0-16.0) g/dL Hct 37.2 (36-46) % MCV 87.1 (80-100) fL MCH 29.7 (26-34) PG MCHC 34.0 (30-36) % RDW 14.4 (11.6-14.8) % Plt Count 389 (150-400) X10^3/uL Neut % (Auto) 62.1 (50-75) % Lymph % (Auto) 24.4 L (25-40) % [place] % (Auto) 10.9 (3-14) % Eos % (Auto) 1.6 L (2-4) % Baso % (Auto) 1.0 (0-2) % Neut # (Auto) 6300 (7390-3506) /uL Lymph # (Auto) 2500 (2621-1941) /uL [place] # (Auto) 1100 H (0-900) /uL Eos # (Auto) 200 (0-450) /uL Baso # (Auto) 100 (0-100) /uL PT 11.1 (9.4-12.5) SECONDS INR 1.0 (0.9-1.3) APTT 39 H (25.1-36.5) SECONDS Sodium 134 L (137-145) mmol/L Potassium 3.9 (3.4-5.1) mmol/L Chloride 104 (98-107) mmol/L Carbon Dioxide 23 (22-32) mmol/L BUN 14 (7-17) mg/dL Creatinine 0.79 (0.52-1.04) mg/dL Estimated GFR > 60 (>60) mL/min BUN/Creatinine Ratio 17.7 (6-22) Glucose 90 (80-110) mg/dL Calcium 9.2 (8.4-10.2) mg/dL Magnesium 2.3 (1.6-2.3) mg/dL Total Bilirubin 0.4 (0.2-1.3) mg/dL AST 24 (14-36) IU/L ALT 15 (<35) IU/L Alkaline Phosphatase 75 (38-126) U/L Total Creatine Kinase 38 (30-135) U/L Troponin I < 0.012 (0.01-0.034) ng/mL NT-Pro-B Natriuret Pep 216 (<450) pg/mL Total Protein 6.7 (6.3-8.2) g/dL Albumin 3.9 (3.5-5.0) g/dL Globulin 2.8 (1.7-4.1) g/dL Albumin/Globulin Ratio 1.4 (1.0-2.8) Lipase 48 (23-300) U/L Discharge Plan Departure Prescriptions: No Action hydrocodone-acetaminophen 5-325 mg tablet 1 tab PO BID MDD 3000 mg PRN (Reason: pain) Patient Comments: TK 1 T PO BID PRF PAIN FILL DATE 10/18/18. NTE 3000 MG OF ACETAMINOPHENPER DAY levothyroxine 50 mcg tablet 50 mcg PO DAILY Patient Comments: TK 1 T PO D bupropion HCl 300 mg tablet extended release 24 hr 300 mg PO DAILY Patient Comments: TK 1 T PO D tramadol 50 mg tablet 50 mg PO Q6H PRN (Reason: pain) Qty: 20 0RF Referrals: Carla Breen MD [Primary Care Provider] -
[2024-04-13 19:35] LABS: D Dimer 764 ng/ml (<500)
--- NOTE | 2024-04-13 19:43 | DI.CT.S_ITS ---
PROCEDURE: CT ANGIO CHEST PE PROTOCOL INDICATIONS: Chest pain, shortness of breath, tachycardia TECHNIQUE: After the administration of intravenous contrast, 2 mm thick sections acquired from the pulmonary apices to the posterior costophrenic angles. MIP reformats of the arterial vasculature were utilized. For radiation dose reduction, the following was used: automated exposure control, adjustment of mA and/or kV according to patient size. COMPARISON: None. FINDINGS: Cardiovascular: Heart size is normal. No evidence of pulmonary embolism, aortic aneurysm or dissection. Lungs and Pleura: Diffuse chronic interstitial changes noted particular at the lung bases without focal infiltrate Mediastinum: The thyroid is unremarkable. No hiatal hernia. Lymph nodes: No mediastinal, hilar or axillary adenopathy. Bones and Chest Wall: Irregular skin thickening noted in both periareolar breasts as well as the right lateral breast Upper Abdomen: No significant abnormality present. IMPRESSION: No acute findings. No evidence of pulmonary embolism, aortic aneurysm or dissection. Bilateral irregular skin thickening noted involving both periareolar breasts. Consider mammographic correlation Approved by: Jeffrey Causey M.D. on 04/13/2024 at 20:03
[2024-04-13] MEDS: TET,DIPH,PERTUSS(ACELL),VAC/PF 0.5 ML SYRINGE IM (21:34)
== END 2024-04-13 21:43 | disposition home or self-care (01) ==
PROVIDERS: Student in an Organized Health Care Education/Training Program; Emergency Provider Emergency Medicine; PCP Family Medicine
DX: R55 Syncope and collapse (principal); S00.83XA Contusion of other part of head, initial encounter; R07.9 Chest pain, unspecified; R06.02 Shortness of breath; R00.0 Tachycardia, unspecified; Z23 Encounter for immunization
CPT/HCPCS: 36415; 70450; 70486; 70496; 70498; 71045; 71275; 72125; 80053; 82550; 83690; 83735; 83880; 84484; 85025; 85379; 85610; 85730; 90471; 93005; 99284; 90715; Q9967